=== PATIENT | female | born 1985 | race Two or more races ===

== ENCOUNTER 2024-09-20 17:50 | Emergency (ER) | payer OTHER ==
[~2024-09-20] VITALS: Ht 170.2 cm; Wt 54.4 kg
[2024-09-20 18:43] VITALS: BP 130/77; TEMP 97.6; O2SAT 100
[2024-09-20] MEDS ORDERED: ERYT3.5O9 LEFTEYE (18:54)
== END 2024-09-20 19:28 | disposition home or self-care (01) ==
LOC: ER 18:15
DX: H00.014 Hordeolum externum left upper eyelid (principal)